=== PATIENT | female | born 1950 | race Caucasian/White ===

== ENCOUNTER → 2016-12-06 10:08 | Outpatient (CLI) | payer MEDICAID ==
[2012-08-15 12:45] VITALS: BMI 22.2
== END | disposition home or self-care (01) ==
LOC: D.CT 10:08
DX: R41.82 Altered mental status, unspecified (principal); R41.3 Other amnesia; R26.2 Difficulty in walking, not elsewhere classified

== ENCOUNTER → 2017-09-14 12:22 | Outpatient (CLI) | payer MEDICARE, MEDICAID ==
[2012-08-15 12:45] VITALS: BMI 22.2
== END | disposition home or self-care (01) ==
LOC: D.CT 09-11 09:30
DX: J44.9 Chronic obstructive pulmonary disease, unspecified (principal)

== ENCOUNTER → 2018-02-05 10:19 | Outpatient (CLI) | payer MEDICARE, MEDICAID ==
[2012-08-15 12:45] VITALS: BMI 22.2
== END | disposition home or self-care (01) ==
LOC: D.MRI 10:19
DX: R42 Dizziness and giddiness (principal)

== ENCOUNTER → 2018-07-24 19:48 | Outpatient (CLI) | payer MEDICARE, MEDICAID ==
[2012-08-15 12:45] VITALS: BMI 22.2
== END | disposition home or self-care (01) ==
LOC: D.MAMMO 14:00
DX: Z12.31 Encounter for screening mammogram for malignant neoplasm of breast (principal)

== ENCOUNTER → 2020-02-25 23:30 | Outpatient (CLI) | payer MEDICARE, MEDICAID ==
[2012-08-15 12:45] VITALS: BMI 22.2
== END | disposition home or self-care (01) ==
LOC: D.MAMMO 02-23 13:30
PROVIDERS: ATTEND Family Medicine
DX: Z12.31 Encounter for screening mammogram for malignant neoplasm of breast (principal)